=== PATIENT | female | born 1980 | race Two or more races ===

== ENCOUNTER 2017-08-29 07:27 | Outpatient (CLI) | payer OTHER | END 2017-08-29 07:47 | disposition home or self-care (01) | LOC: MAMO-SONO 07:27 | DX: N60.11 Diffuse cystic mastopathy of right breast (principal); N60.12 Diffuse cystic mastopathy of left breast ==

== ENCOUNTER 2018-09-09 07:08 | Outpatient (CLI) | payer OTHER | END 2018-09-09 07:19 | disposition home or self-care (01) | LOC: MAMO-SONO 07:08 | DX: N60.19 Diffuse cystic mastopathy of unspecified breast (principal); N60.12 Diffuse cystic mastopathy of left breast ==

== ENCOUNTER 2020-05-16 07:18 | Outpatient (CLI) | payer OTHER | END 2020-05-16 07:32 | disposition home or self-care (01) | LOC: MAMO-SONO 07:18 | DX: N60.11 Diffuse cystic mastopathy of right breast (principal); N60.12 Diffuse cystic mastopathy of left breast; N64.59 Other signs and symptoms in breast ==

== ENCOUNTER 2021-01-22 07:28 | Emergency (ER) | payer OTHER ==
[~2021-01-22] VITALS: Ht 157.5 cm; Wt 58.1 kg
[2021-01-22] MEDS ORDERED: SYNTHROID50 MCG PO (07:45)
[2021-01-22] MEDS ORDERED: KETO10TA2 PO (10:35)
[2021-01-22] MEDS ORDERED: ZITHROMAX500 MG PO (10:35)
== END 2021-01-22 10:45 | disposition home or self-care (01) ==
LOC: ER 07:28
DX: R07.0 Pain in throat (principal); Z20.822 Contact with and (suspected) exposure to COVID-19

== ENCOUNTER 2021-09-17 07:15 | Emergency (ER) | payer OTHER ==
[~2021-09-17] VITALS: Ht 157.5 cm; Wt 59.0 kg
[~2021-09-17 07:15] MED LIST: KETO10TA2 PO; SYNTHROID50 MCG PO; ZITHROMAX500 MG PO
== END 2021-09-17 10:44 | disposition home or self-care (01) ==
LOC: ER 07:15
DX: N39.0 Urinary tract infection, site not specified (principal); Z88.6 Allergy status to analgesic agent

== ENCOUNTER → 2021-10-05 | Outpatient (CLI) | payer OTHER | END | disposition home or self-care (01) | LOC: RAD 07:53 | PROVIDERS: ATTEND Internal Medicine Cardiovascular Disease | DX: R10.9 Unspecified abdominal pain (principal) ==

== ENCOUNTER 2021-10-10 07:46 | Outpatient (CLI) | payer OTHER | END 2021-10-10 07:56 | disposition home or self-care (01) | LOC: SONOGRAMA 07:46 | PROVIDERS: ATTEND Internal Medicine Cardiovascular Disease | DX: R10.9 Unspecified abdominal pain (principal); N80.9 Endometriosis, unspecified ==

== ENCOUNTER 2021-11-14 07:32 | Outpatient (CLI) | payer OTHER | END 2021-11-14 07:45 | disposition home or self-care (01) | LOC: MAMO-SONO 07:32 | DX: N60.11 Diffuse cystic mastopathy of right breast (principal); N60.12 Diffuse cystic mastopathy of left breast; N64.4 Mastodynia ==

== ENCOUNTER 2023-10-22 07:46 | Outpatient (CLI) | payer OTHER | END 2023-10-22 08:00 | disposition home or self-care (01) | LOC: MAMO-SONO 07:46 | DX: R10.2 Pelvic and perineal pain (principal); N60.11 Diffuse cystic mastopathy of right breast; N60.12 Diffuse cystic mastopathy of left breast; Z12.39 Encounter for other screening for malignant neoplasm of breast; Z12.31 Encounter for screening mammogram for malignant neoplasm of breast ==

== ENCOUNTER 2025-01-27 07:46 | Outpatient (CLI) | payer OTHER | END 2025-01-27 07:47 | disposition home or self-care (01) | LOC: SONOGRAMA 07:46 | DX: R10.20 Pelvic and perineal pain unspecified side (principal) ==